=== PATIENT | male | born 1945 | race Caucasian/White ===

== ENCOUNTER 2021-01-07 17:56 | Emergency (ER) | payer MEDICARE ==
[~2021-01-07] VITALS: Ht 172.7 cm; Wt 86.2 kg
[2021-01-07] MEDS ORDERED: LIPITOR10 MG (18:20)
[2021-01-07] MEDS ORDERED: SPIRONOLACTONE25 MG PO (18:20)
[2021-01-07] MEDS ORDERED: ATORVASTATIN CA10 MG PO ×2 (18:20→18:21)
[2021-01-07] MEDS ORDERED: AMLODIPINE BESY10 MG PO (18:20)
[2021-01-07] MEDS ORDERED: ALDACTONE25 MG PO (18:21)
[2021-01-07] MEDS ORDERED: EXFORGE 5-1601 EACH PO (18:21)
[2021-01-07] MEDS ORDERED: CLINDAMYCIN HC300 MG PO (23:18)
== END 2021-01-07 23:56 | disposition home or self-care (01) ==
LOC: ED 17:56
PROC: 0CQ1XZZ Repair Lower Lip, External Approach (ICD-10-PCS; principal; 2021-01-07)
DX: S09.90XA Unspecified injury of head, initial encounter (principal); S01.512A Laceration without foreign body of oral cavity, initial encounter; S01.511A Laceration without foreign body of lip, initial encounter; Z88.0 Allergy status to penicillin; Z23 Encounter for immunization; W18.2XXA Fall in (into) shower or empty bathtub, initial encounter
CPT/HCPCS: 40650; 41250; 70450; 72125; 90471; 90715; 99283-25